=== PATIENT | male | born 1990 | race Caucasian/White ===

== ENCOUNTER 2016-08-09 12:06 | Emergency (ER) | payer OTHER, MEDICAID ==
[2016-08-09] MEDS ORDERED: NO HOME MEDICATION XX (14:16)
[2016-08-09] MEDS ORDERED: HYDROCODONE-IB1 EAC3 PO (15:19)
[2016-08-09] MEDS ORDERED: OXYCODONE HCL5 M1 PO (15:40)
[2016-08-09] MEDS ORDERED: CEPHALEXIN500 M1 PO (16:08)
== END 2016-08-09 16:39 ==
LOC: EDMED 12:06
DX: S02.40FA Zygomatic fracture, left side, initial encounter for closed fracture (principal); S02.32XA Fracture of orbital floor, left side, initial encounter for closed fracture; F17.200 Nicotine dependence, unspecified, uncomplicated; W20.8XXA Other cause of strike by thrown, projected or falling object, initial encounter; Y93.H3 Activity, building and construction; Y99.8 Other external cause status